=== PATIENT | female | born 1975 | race Caucasian/White ===

== ENCOUNTER 2016-05-04 15:17 | Emergency (ER) | payer BC ==
[~2016-05-04] VITALS: Ht 162.6 cm; Wt 77.1 kg
[~2016-05-04 15:17] MED LIST: EFFEXOR XR150 MG PO; EFFEXOR100 MG PO; HYDROCODON-ACE1 EAC7 PO; LAMICTAL200 MG PO; LAMICTAL25 MG PO; LOPRESSOR; PREDNISONE10 M1 PO; PROZAC10 MG PO
[2016-05-04] MEDS ORDERED: LINZESS72 MCG PO (17:18)
[2016-05-04] MEDS ORDERED: PRILOSEC OTC20 MG PO (17:18)
[2016-05-04] MEDS ORDERED: LAMICTAL100 MG PO (17:18)
[2016-05-04] MEDS ORDERED: KLONOPIN0.5 M1 PO (17:20)
[2016-05-04] MEDS ORDERED: BENADRYL50 MG PO (18:15)
[2016-05-04] MEDS ORDERED: PEPCID20 MG PO (18:16)
[2016-05-04] MEDS ORDERED: PREDNISONE10 MG PO (18:46)
[2016-05-04 18:47] VITALS: BP 133/86
== END 2016-05-04 18:48 | disposition home or self-care (01) ==
LOC: EME 15:17
DX: T50.8X5A Adverse effect of diagnostic agents, initial encounter (principal); R21 Rash and other nonspecific skin eruption; Z88.6 Allergy status to analgesic agent; Z88.1 Allergy status to other antibiotic agents; Z87.442 Personal history of urinary calculi
CPT/HCPCS: 87651 90; 99281; 99284; J1100; J1200; S0028

== ENCOUNTER 2016-08-30 17:32 | Emergency (ER) | payer BC ==
[~2016-08-30] VITALS: Ht 162.6 cm; Wt 72.7 kg
[~2016-08-30 17:32] MED LIST changes: +BENADRYL50 MG PO; +KLONOPIN0.5 M1 PO; +LAMICTAL100 MG PO; +LINZESS72 MCG PO; +PEPCID20 MG PO; +PREDNISONE10 MG PO; +PRILOSEC OTC20 MG PO
[2016-08-30 18:17] LABS: BASOPHIL COUNT 0.1 K/uL (0-0.1); EOSINOPHIL (%) 0.8 % (0-5); EOSINOPHIL COUNT 0.1 K/uL (0-0.3); HEMATOCRIT 39.4 % (36.0-46.0); IMMATURE GRANULOCYTE (%) 0.6 % (0.0-0.7); IMMATURE GRANULOCYTE COUNT 0.1 K/uL; LYMPHOCYTE COUNT 0.4 K/uL (1.0-2.8); MCH 28.5 PG (29.0-34.0); MCV 86.4 FL (83-99); MEAN PLAT.VOLUME 9.2 uM^3 (9.5-12.4); MONOCYTE (%) 9.2 % (3-12); MONOCYTE COUNT 1.1 K/uL (0-0.8); NEUTROPHIL (%) 85.9 % (45-76); PLATELET COUNT 228 K/uL (156-360); RBC DIS.WIDTH-CV 12.2 % (11.8-14.6); RBC DIS.WIDTH-SD 38.7 % (39-53); RED BLOOD COUNT 4.56 M/uL (3.80-5.20); WHITE BLOOD COUNT 11.6 K/uL (4.1-10.2)
[2016-08-30 18:26] LABS: CHLORIDE 108 mEq/L (99-109); POTASSIUM 3.6 mEq/L (3.7-5.4); SODIUM 138 mEq/L (136-147)
[2016-08-30 18:28] LABS: GLUCOSE 103 mg/dL (70-99)
[2016-08-30 18:30] LABS: ANION GAP 5 MEQ/L (2-14); TOTAL BILIRUBIN 0.6 mg/dL (0.0-1.0)
[2016-08-30 18:32] LABS: ALKALINE PHOSPHATASE 61 IU/L (3-129); GFR ESTIMATE (CALCULATED) > 59 mL/min/
[2016-08-30 18:33] LABS: UREA NITROGEN (BUN) 20 mg/dL (9-23)
[2016-08-30 20:33] LABS: ADD MIUA? YES; BILIRUBIN NEGATIVE; BLOOD SMALL; COLOR YELLOW ((YELLOW)); GLUCOSE (STRIP) NEGATIVE; KETONES NEGATIVE; LEUKOCYTES NEGATIVE; NITRITE NEGATIVE; PROTEIN (STRIP) NEGATIVE; SPECIFIC GRAVITY 1.018 (1.000-1.030); UROBILINOGEN 0.2 MG/DL (0.2-1.0)
[2016-08-30 21:08] LABS: BACTERIA NONE SEEN /HPF; EPITHELIAL CELLS 1+ /HPF; MUCUS TRACE /LPF; RED BLOOD CELLS 0-5 /HPF (0-5); UCUL ADDED? NO; UNCLASSIFIED CRYSTALS 1+ /HPF; WHITE BLOOD CELLS 0-5 /HPF (0-5)
[2016-08-30 21:45] VITALS: BP 101/72
== END 2016-08-30 21:46 | disposition home or self-care (01) ==
LOC: EME 17:32
PROVIDERS: Emergency Medicine
DX: E86.0 Dehydration (principal); R55 Syncope and collapse; C85.90 Non-Hodgkin lymphoma, unspecified, unspecified site; Z87.442 Personal history of urinary calculi
CPT/HCPCS: 74000; 80053; 81003; 83605; 85025; 99281; 99285; J2765; J7030

== ENCOUNTER 2016-11-29 13:43 | Emergency (ER) | payer BC ==
[~2016-11-29] VITALS: Ht 162.6 cm; Wt 75.4 kg
[2016-11-29] MEDS ORDERED: BENADRYL50 MG PO (17:42)
[2016-11-29] MEDS ORDERED: EPIPEN ADU0.3 MG/0.3 IM (17:42)
[2016-11-29] MEDS ORDERED: MEDROL DOSEPAK4 MG PO (17:42)
[2016-11-29 17:58] VITALS: BP 115/89
== END 2016-11-29 18:07 | disposition home or self-care (01) ==
LOC: EME 13:43
DX: L27.0 Generalized skin eruption due to drugs and medicaments taken internally (principal); T50.8X5A Adverse effect of diagnostic agents, initial encounter; F41.9 Anxiety disorder, unspecified; F32.9 Major depressive disorder, single episode, unspecified; Z85.72 Personal history of non-Hodgkin lymphomas; Z90.710 Acquired absence of both cervix and uterus; Z88.8 Allergy status to other drugs, medicaments and biological substances
CPT/HCPCS: 99281; 99283; J1200; J2930